=== PATIENT | male | born 1985 | race Caucasian/White ===

== ENCOUNTER 2020-09-21 15:00 | Emergency (ER) | payer SELFPAY ==
[~2020-09-21] VITALS: Ht 188 cm; Wt 65.8 kg
== END 2020-09-21 17:02 | disposition home or self-care (01) ==
LOC: ED 15:00
DX: S71.011A Laceration without foreign body, right hip, initial encounter (principal); X78.1XXA Intentional self-harm by knife, initial encounter; Z23 Encounter for immunization; F17.200 Nicotine dependence, unspecified, uncomplicated; Z88.5 Allergy status to narcotic agent
CPT/HCPCS: 12001; 73502; 90471; 90715; 99285-25

== ENCOUNTER 2020-10-16 14:43 | Emergency (ER) | payer SELFPAY ==
[~2020-10-16] VITALS: Ht 188 cm; Wt 70.3 kg
--- OUTSIDE RECORDS SUMMARY | 2020-10-16 14:52 | XMS ---
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 Vnaessa has no Care Guidelines for this patient. Johnna V[facility] (12 MO.) [facility] NOTE: Visits indicate total known visits. ED/C VISIT TRACKING (12 MO.) 10/16/2020 14:[address] [facility] [place] TYPE: Emergency COMPLAINT: - RT FOOT LACERATION 09/21/2020 15:[address] [facility] [place] TYPE: Emergency COMPLAINT: - RIGHT HIP LACERATION DIAGNOSES: - Intentional self-harm by knife, initial encounter - Allergy status to narcotic agent - Laceration without foreign body, right hip, initial encounter - Nicotine dependence, unspecified, uncomplicated - Encounter for immunization INPATIENT VISIT TRACKING (12 MO.) No inpatient visits to display in this time frame [email or web address]
[2020-10-16] MEDS ORDERED: CEPHALEXIN500 M1 PO (16:56)
--- NOTE | 2020-10-16 21:03 | EKG ---
[facility] [address] [place], [place] [address] Signed Sinus tachycardia Possible Anterior infarct , age undetermined Abnormal ECG No previous ECGs available Confirmed by MALIA MG DO ([id number]) on 10/16/2020 9:03:39 PM Electronically Signed By: MALIA MG DO 10/16/202102 PATIENT NAME: AUBREY RUSSELL NAN Electrocardiogram DATE OF : 81 PHYSICIAN: MALIA MG DO REPORT #: [id number] REPORT IS CONFIDENTIAL AND NOT TO BE RELEASED WITHOUT AUTHORIZATION
== END 2020-10-16 17:39 | disposition home or self-care (01) ==
LOC: ED 14:43
DX: S91.311A Laceration without foreign body, right foot, initial encounter (principal); W22.8XXA Striking against or struck by other objects, initial encounter; F17.200 Nicotine dependence, unspecified, uncomplicated; Z88.5 Allergy status to narcotic agent
CPT/HCPCS: 73630; 93005; 93010; 99285-25

== ENCOUNTER 2021-01-25 21:10 | Emergency (ER) | payer OTHER ==
[~2021-01-25] VITALS: Ht 188 cm; Wt 74.4 kg
[~2021-01-25 21:10] MED LIST: CEPHALEXIN500 M1 PO
--- OUTSIDE RECORDS SUMMARY | 2021-01-25 21:18 | XMS ---
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 CRITERIA MET - Group Notification CARE PROVIDERS TAM DILL Internal Medicine Current PHONE: [phone] Vanessa has no Care Guidelines for this patient. Johnna VISIT COUNT (12 MO.) 1 [facility] [address] [place] [address] TOTAL 5 NOTE: Visits indicate total known visits. ED/C VISIT TRACKING (12 MO.) 01/25/2021 21:11 [facility] TYPE: Emergency COMPLAINT: - R HAND WOUND 10/28/2020 17:36 [facility] TYPE: Emergency COMPLAINT: - WOUND CHECK/ RT FOOT PAIN 10/16/2020 14:43 [facility] TYPE: Emergency COMPLAINT: - RT FOOT LACERATION DIAGNOSES: - Striking against or struck by other objects, initial encounter - Nicotine dependence, unspecified, uncomplicated - Laceration without foreign body, right foot, initial encounter - Allergy status to narcotic agent 09/21/2020 15:01 [facility] TYPE: Emergency COMPLAINT: - RIGHT HIP LACERATION DIAGNOSES: - Intentional self-harm by knife, initial encounter - Allergy status to narcotic agent - Laceration without foreign body, right hip, initial encounter - Nicotine dependence, unspecified, uncomplicated - Encounter for immunization 02/15/2020 19:46 [facility] TYPE: Emergency DIAGNOSES: - Carpal tunnel syndrome, left upper limb - Postconcussional syndrome - Pain in left wrist - Wrist Pain INPATIENT VISIT TRACKING (12 MO.) No inpatient visits to display in this time frame [email or web address]
[2021-01-26] MEDS ORDERED: CEPHALEXIN500 MG PO (00:48)
[2021-01-26] MEDS ORDERED: BACTRIM DS TAB1 EACH PO (00:48)
== END 2021-01-26 01:08 | disposition home or self-care (01) ==
LOC: ED 21:10
DX: S61.011D Laceration without foreign body of right thumb without damage to nail, subsequent encounter (principal); L08.9 Local infection of the skin and subcutaneous tissue, unspecified; F17.200 Nicotine dependence, unspecified, uncomplicated; Z88.8 Allergy status to other drugs, medicaments and biological substances; Z88.5 Allergy status to narcotic agent
CPT/HCPCS: 73130; 99283-25

== ENCOUNTER 2021-06-05 03:04 | Emergency (ER) | payer OTHER ==
[~2021-06-05] VITALS: Ht 188 cm; Wt 68.0 kg
[~2021-06-05 03:04] MED LIST changes: +BACTRIM DS TAB1 EACH PO; +CEPHALEXIN500 MG PO
--- OUTSIDE RECORDS SUMMARY | 2021-06-05 03:12 | XMS ---
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 CRITERIA MET - Group Notification CARE PROVIDERS TAM DILL Internal Medicine Current PHONE: Unknown Vanessa has no Care Guidelines for this patient. Care History Medical/Surgical 02/10/2021 [facility] - PATIENT CONTACT NUMBER IS NO LONGER ACTIVE- [phone] E[facility] VISIT COUNT (12 MO.) 5 [facility] TOTAL 5 NOTE: Visits indicate total known visits. ED/UCC VISIT TRACKING (12 MO.) 06/05/2021 03:05 [facility] TYPE: Emergency COMPLAINT: - RIGHT PINKY LAC 01/25/2021 21:11 [facility] TYPE: Emergency COMPLAINT: - R HAND WOUND DIAGNOSES: - Local infection of the skin and subcutaneous tissue, unspecified - Laceration without foreign body of right hand, initial encounter - Allergy status to narcotic agent - Nicotine dependence, unspecified, uncomplicated - Laceration without foreign body of right thumb without damage to nail, subsequent encounter - Allergy status to other drugs, medicaments and biological substances - Laceration without foreign body of right hand, subsequent encounter 10/28/2020 17:36 [facility] [place] TYPE: Emergency COMPLAINT: - WOUND CHECK/ [...] visits to display in this time frame [email or web address]
[2021-06-05] MEDS ORDERED: CEPHALEXIN500 MG PO (03:20)
== END 2021-06-05 06:17 | disposition home or self-care (01) ==
LOC: ED 03:04
DX: S61.214A Laceration without foreign body of right ring finger without damage to nail, initial encounter (principal); F17.200 Nicotine dependence, unspecified, uncomplicated; Z88.6 Allergy status to analgesic agent; Z88.5 Allergy status to narcotic agent; W26.0XXA Contact with knife, initial encounter
CPT/HCPCS: 99282

== ENCOUNTER 2021-07-08 09:31 | Observation (INO) | payer OTHER ==
[~2021-07-08] VITALS: Ht 188 cm; Wt 72.2 kg
--- OUTSIDE RECORDS SUMMARY | 2021-07-08 09:40 | XMS ---
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 10/28/2020 17:36 - Other Details: PATIENT LWBS. CRITERIA MET - Group Notification CARE PROVIDERS MILAGROS ROBERTSON Current PHONE: [phone] TAM DILL Internal Medicine Current PHONE: Unknown Vanessa has no Care Guidelines for this patient. Care History Medical/Surgical 02/10/2021 [facility] - PATIENT CONTACT NUMBER IS NO LONGER ACTIVE- [phone] E.[facility]. VISIT COUNT (12 MO.) 6 [facility] TOTAL 6 NOTE: Visits indicate total known visits. ED/UCC VISIT TRACKING (12 MO.) 07/08/2021 09:32 [facility] TYPE: Emergency COMPLAINT: - POSS OVERDOSE 06/05/2021 03:05 [facility] TYPE: Emergency COMPLAINT: - RIGHT PINKY LAC DIAGNOSES: - Allergy status to analgesic agent - Contact with knife, initial encounter - Nicotine dependence, unspecified, uncomplicated - Laceration without foreign body of right ring finger without damage to nail, initial encounter - Allergy status to narcotic agent 01/25/2021 21:11 [facility] TYPE: Emergency [...] right hand, subsequent encounter 10/28/2020 17:36 [facility] TYPE: Emergency COMPLAINT: - WOUND CHECK/ RT FOOT PAIN 10/16/2020 14:43 [facility] TYPE: Emergency COMPLAINT: - RT FOOT LACERATION DIAGNOSES: - Striking against or struck by other objects, initial encounter - Nicotine dependence, unspecified, uncomplicated - Laceration without foreign body, right foot, initial encounter - Allergy status to narcotic agent 09/21/2020 15:[address] [facility] [place] TYPE: Emergency COMPLAINT: - RIGHT HIP LACERATION DIAGNOSES: - Intentional self-harm by knife, initial encounter - Allergy status to narcotic agent - Laceration without foreign body, right hip, initial encounter - Nicotine dependence, unspecified, uncomplicated - Encounter for immunization INPATIENT VISIT TRACKING (12 MO.) No inpatient visits to display in this time frame [email or web address]
--- NOTE | 2021-07-08 16:01 | NUR ---
REPORT RECIEVED FROM ED RN. PATIENT TOOK UNKOWN MEDICATION, WAS VERY SOMULENT IN ER AND RECIEVED SEVERAL DOSES OF NARCAN WITHOUT RESPONSE. AFTER RECIEVING ONE DOSE OF ROMAZICON, PATIENT WAS MORE RESPONSIVE. UA WAS POSITIVE FOR BUPRENORPHINE. UPON ADMIT TO CCU PATIENT IS AWAKE AND ABLE TO FOLLOW COMMANDS. C/O PAIN IN HANDS AND HEADACHE. ADMISSION PROCESS STARTED.
--- NOTE | 2021-07-08 17:15 | NUR ---
VERY DIFFICULT TO DO COMPLETE ADMISSION PATIENT LETHARGIC. HOB ELEVATED.
--- NOTE | 2021-07-08 18:24 | EKG ---
[facility] [address] [place], [place] [address] Signed Normal sinus rhythm Possible Left atrial enlargement Incomplete right bundle branch block Cannot rule out Anterior infarct , age undetermined Abnormal ECG No previous ECGs available Confirmed by LENIN LOPEZ MD ([id number]) on 07/08/2021 6:24:47 PM Electronically Signed By: LENIN LOPEZ MD 07/08/211823 PATIENT NAME: AUBREY RUSSELL Electrocardiogram DATE OF : 81 PHYSICIAN: LENIN LOPEZ MD REPORT #: [id number] REPORT IS CONFIDENTIAL AND NOT TO BE RELEASED WITHOUT AUTHORIZATION
--- NOTE | 2021-07-08 18:37 | NUR ---
RT HERE TO APPLY BIPAP. RR-6.
--- NOTE | 2021-07-08 18:59 | NUR ---
BIPAP 15/5. FIO2 26, PATIENT REMAINS VERY LETHARGIC.
--- NOTE | 2021-07-08 19:09 | NUR ---
REPORT TO NEXT SHIFT. PATIENT WILL OPEN EYES BREIFLY FOR SECONDS WHEN NAME SAID LOUDLY, THEN BACK TO SLEEP.
--- NOTE | 2021-07-08 20:56 | NUR ---
PT LAYING IN BED SLEEPING, BIPAP ON AT 15/5, FIO2 AT 26%, SPO2 AT 100%. IVF INFUSING AT ORDERED RATE. PT SOMNOLENT BUT AWAKES TO LOUD VOICE OR PHYSICAL STIMULATION. PT ABLE TO FOLLOW SIMPLE DIRECTIONS WHEN AWAKE BUT RETURNS TO SLEEP QUICKLY. VITALS TAKEN AND PT ASSESSED. PT HEART RATE REGULAR IN RYTHM, SHALLOW BREATHS NOTED BUT LUNGS ARE CLEAR THROUGHOUT, ABDOMEN SOFT, ACTIVE BOWEL TONES NOTED. RADIAL AND PEDAL PULSES STRONG, PT NODS HEAD NO WHEN ASKED IF HE HAS NUMBNESS OR TINGLING TO EXTREMITIES. PT REPOSITIONED UP ON THE BED WITH HELP FROM BERTA CEVALLOS. PT THEN ASKED IF HE WANTED A DRINK, PT NODDED YES. BIPAP REMOVED, PT ABLE TO STAY AWAKE, TAKE SIPS OF WATER AND ANSWER ORIENTATION QUESTS. PT WAS ORIENTED TO SELF, SURROUNDINGS, TOWN, AND YEAR. PT DENIED THE NEED TO VOID AT THIS TIME. PT PLACED BACK ON THE BIPAP AFTERWARDS. PT REPORTS NO FURTHER NEEDS WHEN ASKED AND RETURNED TO SLEEP. CALL LIGHT IN REACH, BED IN LOWEST POSITION, BED ALARM ON, WILL CONTINUE PLAN OF CARE.
--- NOTE | 2021-07-08 22:30 | NUR ---
PT LAYING IN BED RESTING AT THIS TIME ON THE BIPAP. IVF INFUSING ORDERED. PT IN NO APPARENT DISTRESS AT THIS TIME AND WAS LEFT UNDISTURBED. RESPIRATIONS STILL SHALLOW ON THE BIPAP, SPO2 97%. CALL LIGHT IN REACH, BED IN LOWEST POSITION, WILL CONTINUE PLAN OF CARE.
--- NOTE | 2021-07-09 00:40 | NUR ---
PT LAYING IN BED SLEEPING ON THE BIPAP AT PREVIOUS SETTINGS. IV PUMP ALARMING, NEW BAG OF MAINTENANCE IVF HUNG AND STARTED AT ORDERED RATE (SEE MAR). PT IN NO APPARENT DISTRESS AT THIS TIME AND WAS LEFT UNDISTURBED, WILL CONTINUE PLAN OF CARE. CALL LIGHT IN REACH, BED IN LOWEST POSITION, BED ALARM ON.
--- NOTE | 2021-07-09 02:37 | NUR ---
PT LAYING IN BED SLEEPING ON THE BIPAP AT PREVIOUS SETTINGS, SPO2 100%. PT ASSESSMENT COMPLETED AT THIS TIME (SEE MAY). PT AWOKE TO VOICE BUT WAS STILL DROWSY. PT ASKED IF HE NEEDED TO VOID AND A BREAK FROM THE BIPAP, PT NODDED YES. BIPAP TAKEN OFF, PT REMAINED AWAKE AND WAS ORIENTED X3. PT ABLE TO FOLLOW DIRECTIONS. WATER PROVIDED AT THIS TIME. PT ABLE TO SIT AT THE BEDSIDE WITHOUT ASSISTANCE AND VOIDED 600ML OF URINE. PT UPDATED ON PLAN OF CARE AT THIS TIME. PT REPORTS NO FURTHER NEEDS AND IS NOW LAYING IN BED. WARM BLANKETS PROVIDED AND PT PLACED BACK ON THE BIPAP AT PREVIOUS SETTINGS. CALL LIGHT IN REACH, BED IN LOWEST POSITION, BED ALARM ON, WILL CONTINUE PLAN OF CARE.
--- NOTE | 2021-07-09 05:22 | NUR ---
PT LAYING IN BED IN SLEEPING ON THE BIPAP AT PREVIOUS SETTINGS, SPO2 100%. IVF INFUSING ORDERED. VITALS TAKEN (SEE CHART), PT AWOKE DURING THIS TIME. PT NODDED YES WHEN ASKED IF HE WANTED A DRINK OF WATER. PT NOTED TO BE MORE AWAKE AT THIS TIME THAN PRIOR AND IS ABLE TO STAY AWAKE LONGER. PT STILL REPORTS FEELING DROWSY/TIRED. PT ALSO PROVIDED WITH PUDDING AND JUICE PER HIS REQUEST. ASSESSMENT COMPLETED AT THIS TIME (SEE CHART). PT DENIES HAVING ANY PAIN OR SHORTNESS OF BREATH AT THIS TIME. LUNGS ARE CLEAR THROUGHOUT, HEART RATE REGULAR IN RYTHM. ACTIVE BOWEL TONES PRESENT. PT REPORTS NO FURTHER NEEDS AND IS EATING HIS SNACK, WILL CONTINUE PLAN OF CARE. CALL LIGHT IN REACH, BED IN LOWEST POSITION, IVF INFUSING ORDERED.
--- NOTE | 2021-07-09 05:31 | NUR ---
PT FINISHED EATING HIS SNACK AND WAS PLACED BACK ON THE BIPAP. PT REPORTS NO FURTHER NEEDS AT THIS TIME, WILL CONTINUE PLAN OF CARE.
--- NOTE | 2021-07-09 07:45 | NUR ---
PATIENT SHIFT REPORT RECIEVED FROM REGIONAL SERVICE MANAGER RN. PATIENT RESTING I NBED ON BIPAP AT THIS TIME. PER REPORT PATIENT AWAKENS TO EASILY AND IS ALERT AND ORIENTED, BUT EASILY DRIFTS BACK TO SLEEP IF HE IS NOT TALKING. CALL LIGHT IN REACH. WILL CONTINUE TO CLOSELY MONITOR.
--- NOTE | 2021-07-09 09:30 | NUR ---
PATIENT SHIFT ASSESSMENT COMPLETED. PATIENT IS RESTING IN BED. PATIENT IS AOX4. PATIENT IS DROWSY, BUT EASILY AWAKENS. PATIENT IS ON BIPAP OF 15/5 WITH FIO2 26%. PATIENTS RR IS EVEN AND UNLABORED. BOWEL TONES ACTIVE. PATIENT DENIES ANY PAIN AT THIS TIME. WILL CONTINUE TO CLOSELY MONITOR.
--- NOTE | 2021-07-09 10:30 | NUR ---
PATIENT AT THE SIDE OF BED TO USE THE URINAL. PATIENT TOELRATED WELL AND NOW RESTING AT THIS TIME. WILL CONTINUE TO CLOSELY MONITOR.
--- NOTE | 2021-07-09 11:10 | NUR ---
Spoke with pt and he remains somewhat difficult to understand. He state he lives with his in an apartment and he works at [employer]. He does not use any DME. He drives. States he had an accidental OD when he took some pills from a friend. Pt plans on dc to home. Denies needs.
--- NOTE | 2021-07-09 11:28 | NUR ---
MD IN TO SEE PATIENT. PATIENT AWAKE AND ALERT AND ORIENTED. WILL PLAN TO ADVANCE PATIENTS DIET AND GET PATIENT UP AND WALK AFTER THAT. NO OTHER NEEDS AT THIS TIME. WILL CONTINUE TO CLOSELY MONITOR.
--- NOTE | 2021-07-09 13:30 | NUR ---
PATIENT ATE AND TOLERATED HIS LUNCH WITH NO NAUSEA/VOMITING. PATIENT ALSO UP AND WALKED THE HALLWAY AND TOELRATED WELL. NO OTHER NEEDS AT THIS TIME. PATIENT COMPLAINGING OF HEADACHE. PATIENT REQUESTED TYLENOL AND STATES THAT IS WHAT HE TAKES AT HOME FOR A HEADACHE. PATIENTS SIGNIFICANT OTHER VERIFIED THAT WELL. PATIENTS CHART STATES HE HAS AN ALLERGY TO TYLENOL, BUT PATIENT STATES THAT IS AN ERROR. MD LOPEZ UPDATED. PATIENT WILL DISCHARGE HOME. WILL CONTINUE TO CLOSELY MONITOR.
[2021-07-09] MEDS ORDERED: ACETAMINOPHEN500 MG PO (13:51)
--- NOTE | 2021-07-09 14:06 | NUR ---
MED REC COMPLETE
--- NOTE | 2021-07-09 14:13 | NUR ---
PRN TYLENOL GIVEN FOR PT'S HEADACHE (SEE EMAR). RIGHT HAND IV DC'D PER PATIENT REQUEST. PT UNDERSTANDS PLAN OF CARE CALL LIGHT WITHIN REACH. WILL CONTINUE TO MONITOR.
--- NOTE | 2021-07-09 15:15 | NUR ---
THIS RN IN TO DISCHARGE PATIENT. REVIEWED PLAN OF CARE WITH PATIENT AND HIS SIGNIFICANT OTHER. BOTH ARE AGREEABLE TO PLAN OF CARE. CALLED AND REQUESTED A TAXI RIDE. THEY STATED THEY WOULD BE ABOUT 15 MINUTES. IV DC'D BY WHIT HAMPTON. WHIT HAMPTON IN AT THE BEDSIDE TO ASSIST PATIENT WITH GETTING DRESSED. WILL CONTINUE TO CLOSELY MONITOR.
--- NOTE | 2021-07-09 15:35 | NUR ---
WHIT HAMPTON ASSISTED PATIENT TO A WHEELCHAIR AND PATIENT AND HIS SIGNIFICANT OTHER DISCHARGED [facility] TO [facility] A TAXI RIDE. ALL BELONGINGS SENT WITH PATIENT. PATIENT REMINDED TO FOLLOW-UP WITH HIS PRIMARY CARE PROVIDER. NO OTHER NEEDS AT THIS TIME. ALL QUESTIONS ANSWERED. WILL CONTINUE TO CLOSELY MONITOR.
== END 2021-07-09 15:30 | disposition home or self-care (01) ==
LOC: ED 09:31 → CCU 09:33
PROVIDERS: ADMIT Internal Medicine; ATTEND Internal Medicine
DX: T42.72XA Poisoning by unspecified antiepileptic and sedative-hypnotic drugs, intentional self-harm, initial encounter (principal); G92.8 Other toxic encephalopathy; J96.02 Acute respiratory failure with hypercapnia; F17.210 Nicotine dependence, cigarettes, uncomplicated; I95.9 Hypotension, unspecified; E86.1 Hypovolemia; F15.11 Other stimulant abuse, in remission; Z20.822 Contact with and (suspected) exposure to COVID-19; Z88.5 Allergy status to narcotic agent; Z88.6 Allergy status to analgesic agent
CPT/HCPCS: 51701; 71045; 80053; 81001; 82803; 85025; 93005; 93010; 94660; 99285-25; A9270; C9803; G0378; G0480; J2310; J7121; U0003